=== PATIENT | male | born 1980 | race Caucasian/White ===

== ENCOUNTER 2018-03-21 16:27 | Emergency (ER) | payer SELFPAY ==
[~2018-03-21] VITALS: Ht 167.6 cm; Wt 95.3 kg
[2018-03-21 16:45] VITALS: Ht 167.6 cm; Wt 95.3 kg
[2018-03-21 19:13] VITALS: BP 114/83
== END 2018-03-21 19:13 | disposition home or self-care (01) ==
LOC: ED 16:27
DX: S52.122A Displaced fracture of head of left radius, initial encounter for closed fracture (principal); S52.022A Displaced fracture of olecranon process without intraarticular extension of left ulna, initial encounter for closed fracture; S42.432A Displaced fracture (avulsion) of lateral epicondyle of left humerus, initial encounter for closed fracture; W11.XXXA Fall on and from ladder, initial encounter; Y93.89 Activity, other specified; Y92.89 Other specified places as the place of occurrence of the external cause; Y99.8 Other external cause status
CPT/HCPCS: J1885; Q0092